=== PATIENT | male | born 1980 | race Caucasian/White ===

== ENCOUNTER 2016-07-17 22:07 | Emergency (ER) | payer SELFPAY ==
[~2016-07-17] VITALS: Ht 302.3 cm; Wt 82.0 kg
[~2016-07-17 22:07] MED LIST: LIDODERM 5% P1 PATCH TD; Paxil PO; VALIUM5 MG PO; oxyCODONE PO
[2016-07-18 00:47] VITALS: BP 122/72
== END 2016-07-18 00:48 | disposition home or self-care (01) ==
LOC: EME 22:07
DX: T40.1X1A Poisoning by heroin, accidental (unintentional), initial encounter (principal); F17.200 Nicotine dependence, unspecified, uncomplicated
CPT/HCPCS: 93005; 99281; 99284; J2310

== ENCOUNTER 2017-01-30 21:04 | Emergency (ER) | payer SELFPAY ==
[~2017-01-30] VITALS: Ht 182.9 cm; Wt 79.5 kg
[2017-01-30 21:17] VITALS: BP 156/109
== END 2017-01-30 21:18 ==
LOC: EME 21:04
DX: S20.459A Superficial foreign body of unspecified back wall of thorax, initial encounter (principal); W45.8XXA Other foreign body or object entering through skin, initial encounter; Y35.893A Legal intervention involving other specified means, suspect injured, initial encounter; Z02.89 Encounter for other administrative examinations
CPT/HCPCS: 99281; 99282